=== PATIENT | male | born 1970 | race American Indian/Alaskan Native ===

== ENCOUNTER 2018-07-06 14:53 | Inpatient (IN) | payer MEDICAID ==
[2018-07-06 15:22] VITALS: BMI 25.1
[2018-07-06 16:22] LABS: BASO % 0.4 % (0.0-2.0); EOS # 0.1 K/uL (0.0-0.7); EOS % 1.6 % (0.0-4.0); HEMOGLOBIN 12.2 g/dL (12.0-18.0); LYMPH # 1.7 K/uL (1.0-4.3); LYMPH % 25.1 % (20.0-40.0); MEAN CELL VOLUME 72.3 fL (80.0-94.0); MEAN CORPUSCULAR HEMOGLOBIN 23.4 pg (27.0-31.0); MEAN CORPUSCULAR HGB CONC 32.4 g/dL (33.0-37.0); MEAN PLATELET VOLUME 8.3 fL (7.2-11.7); MONO # 0.4 K/uL (0.0-0.8); MONO % 5.1 % (0.0-10.0); NEUT # 4.7 K/uL (1.8-7.0); NEUT % 67.8 % (50.0-75.0); NRBC % 0.1 % (0.0-2.0); RBC 5.21 Mil/uL (4.40-5.90); RED CELL DISTRIBUTION WIDTH 15.8 % (11.5-14.5)
[2018-07-06 16:37] LABS: URINE BACTERIA RARE (<OCC); URINE BILIRUBIN NEGATIVE (NEGATIVE); URINE BLOOD NEGATIVE (NEGATIVE); URINE CLARITY Clear (Clear); URINE COLOR Yellow (YELLOW); URINE GLUCOSE (UA) NORMAL (Normal); URINE LEUKOCYTE ESTERASE NEG Leu/uL (Negative); URINE PROTEIN 1+ mg/dL (NEGATIVE)
[2018-07-06 16:41] LABS: ALB/GLOB RATIO 1.3 (1.0-2.1); ALBUMIN 4.5 g/dL (3.5-5.0); ALT/SGPT 17 U/L (21-72); AST/SGOT 24 U/L (17-59); BLOOD UREA NITROGEN 20 mg/dL (9-20); CALCIUM 9.2 mg/dl (8.6-10.4); GFR NON-AFRICAN AMERICAN > 60
[2018-07-06 16:48] LABS: BARBITURATES, UR NEGATIVE (NEGATIVE); BENZODIAZEPINES, UR NEGATIVE (NEGATIVE); PHENCYCLIDINE, UR NEGATIVE (NEGATIVE)
[2018-07-06 16:52] LABS: OPIATES, UR POSITIVE (NEGATIVE)
--- NOTE | 2018-07-06 17:06 | C.PDOC ---
History Of Present Illness 47 year old male presents to the ED requesting detox for heroin abuse. Patient denies SI/HI, hallucinations, CP, SOB, palpitations, rash, weakness, numbness, injury, fall, trauma. Time Seen by Provider: 07/06/18 15:34 Chief Complaint (Nursing): Substance Abuse History Per: Patient History/Exam Limitations: no limitations Onset/Duration Of Symptoms: Hrs Current Symptoms Are (Timing): Still Present Suicide/Self Injury Attempted (Context): None Modifying Factor(s): Other (Heroin) Associated Symptoms: denies: Depression, Suicidal Thoughts, Suicidal Plan Recent travel outside of the [place]: No Additional History Per: Patient Past Medical History Reviewed: Historical Data, Nursing Documentation, Vital Signs Vital Signs: Last Vital Signs Temp 98.6 F 07/06/18 15:22 Pulse 48 L 07/06/18 15:22 Resp 18 07/06/18 15:22 BP 165/94 H 07/06/18 15:22 Pulse Ox 100 07/06/18 15:22 - Medical History PMH: HTN Denies: Chronic Kidney Disease Surgical History: No Surg Hx Family History: States: Unknown Family Hx - Social History Hx Alcohol Use: No Hx Substance Use: Yes - Immunization History Hx Tetanus Toxoid Vaccination: No Hx Influenza Vaccination: No Hx Pneumococcal Vaccination: No Review Of Systems Constitutional: Negative for: Fever, Chills Eyes: Negative for: Vision Change Cardiovascular: Negative for: Chest Pain Respiratory: Negative for: Shortness of Breath Gastrointestinal: Negative for: Nausea, Vomiting, Abdominal Pain Skin: Negative for: Rash Psych: Negative for: Depression, Suicidal ideation Physical Exam - Physical Exam Appears: Non-toxic, No Acute Distress Skin: Normal Color, Warm, Dry Head: Atraumatic, Normacephalic Eye(s): bilateral: Normal Inspection Neck: Normal ROM, Supple Chest: Symmetrical Cardiovascular: Rhythm Regular Respiratory: Normal Breath Sounds, No Rales, No Rhonchi, No Wheezing Gastrointestinal/Abdominal: Soft, No Tenderness, No Guarding, No Rebound Extremity: Normal ROM, No Tenderness, No Swelling Neurological/Psych: Oriented x3, Normal Speech, Normal Cognition Gait: Steady ED Course And Treatment - Laboratory Results Result Diagrams: 07/06/18 16:18 07/06/18 16:18 Lab Interpretation: Abnormal (opiates + tox) O2 Sat by Pulse Oximetry: 100 (ON RA) Pulse Ox Interpretation: Normal Reevaluation Time: 17:24 Reassessment Condition: Unchanged - Physician Consult Information Outcome Of Conversation: d/w Crisis, ok to admit to Detox Medical Decision Making Medical Decision Making: Plan: * Labs * UA * Crisis eval Disposition Doctor Will See Patient In The: Hospital Counseled Patient/Family Regarding: Studies Performed, Diagnosis - Disposition Disposition: HOSPITALIZED Disposition Time: 17:25 Condition: GOOD Forms: [facility] (Armenian) - Clinical Impression Clinical Impression: Opiate abuse, continuous - Scribe Statement The provider has reviewed the documentation as recorded by the Scribe Rupert Valentin All medical record entries made by the Scribe were at my direction and per sonally dictated by me. I have reviewed the chart and agree that the record accurately reflects my personal performance of the history, physical exam, medical decision making, and the department course for this patient. I have also personally directed, reviewed, and agree with the discharge instructions and disposition.
--- NOTE | 2018-07-06 17:49 | PCM.BM ---
<Basilio Trujillo - Last Filed: 07/06/18 17:48> Treatment assets and liabiliti Patient Assests: cognitively intact Patient Liabilities: substance abuse - Milieu Protocol Maintain good personal hygiene: daily Encourage regular showers, daily Remind patient to perform daily oral care, daily Assist patient to perform ADL's Conduct patient checks and document Observation sheet: Q15 minutes Maintain personal safety: every shift Educate patient to report safety concerns to staff, every shift Monitor environment for contraband/sharps Medication safety: Monitor for expected outcome, potential side effects: every shift, Assess barriers to learning: every shift, Assess readiness for medication education: every shift <Maritza Madrid - Last Filed: 07/09/18 14:03> Family Contact Family involvement: Famliy/SO not involved - Goals for Treatment Patient goals for treatment: Complete detox and transition to an IOP with Suboxone maintenance. Discharge/Continuing Care - Education Needs Education Needs: Patient Medication, Patient Diagnosis/Disease Process, Patient Coping Skills, Patient Anger Management skills, Patient Placement options, Patient Community resources - Discharge Discharge Criteria: No longer exhibiting s/s of withdrawal, Reduction of target symptoms Discharge to:: Home, With Family - Treatment Team Participation Patient/Family/SO Statement: 07/09/18 14:04 "I'll go to an IOP and I wanna try Suboxone too..." Discussed with Family/SO: No Was Patient/Family/SO present at Treatment Team Meeting: Yes <Lakesha Kelley - Last Filed: 07/09/18 22:52> - Diagnosis (1) Opiate abuse, continuous Status: Acute Interventions: 07/09/18 22:52 * Assess 7x/week regarding severity of withdrawal * Educate regarding risks, benefits, side effects and alternatives of medications * Use Motivational Interviewing for abstinence * Use CBT for relapse prevention * Medication management for withdrawal symptoms * Encourage medication assisted treatment *
[2018-07-07] MEDS ORDERED: Aluminum Hydroxide/Magnesium Hydroxide Susp (30 mL) PO PRN (12:04)
[2018-07-07] MEDS ORDERED: Buprenorphine Hydrochloride 2 mg SL ONE ×3 (15:08→16:00)
--- NOTE | 2018-07-07 19:13 | PCM.PSYCH ---
Initial Psychiatric Evaluation - Initial Psychiatric Evaluation Type of Admission: Voluntary () Legal Status: Capacity Chief Complaint (in patient's own words): I need help from heroin use. History of Present Illness and Precipitating Events: Patient is a 47 years old, single, unemployed, male with no previous history of psychiatric illness was admitted due to withdrawing from heroin. Patient reported started using heroin at 20 years of age, increased gradually up to 15 bags of heroin daily, sniffing. Last use of heroin was yesterday, 3 bags. His longest period of abstinence was 3 years, 3 years ago when he was in penitentiary. Patient was in penitentiary for about 3 years for selling drugs, released years ago and relapse on heroin. He has history of one previous detox and no rehabs. He was smoking one and a half pack of cigarettes daily and is requesting for nicotine patch. Patient has history of 6 arrests in the past and was in penitentiary multiple times. His most recent incarceration was 6 years ago for selling drugs, was released from penitentiary 3 years ago. He is not on probation. Patient was born in [place] and has 11th grade of education. He is not working for last 3 months. 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 He lives with his girlfriend who also helps him. Patient was never and has 4 children 14, 21, 25 and 26 years of age from 2 different females. His 14 years of age was adopted. His height is 5 feet 11 inches and weight is 180 pounds. Current Medications: Active Medications Generic Name Dose Route Start Last Admin Trade Name Freq PRN Reason Stop Dose Admin Al Hydrox/Mg Hydrox/Simethicone 30 ml 07/07/18 12:04 Maalox 30 Ml PO TID PRN Indigestion / Heartburn Amlodipine Besylate 10 mg 07/07/18 12:30 07/07/18 12:32 Norvasc PO 10 mg DAILY RAMYA Administration Carvedilol 25 mg 07/07/18 18:00 07/07/18 17:07 Coreg PO 25 mg BID RAMYA Administration Dicyclomine HCl 20 mg 07/07/18 12:07 07/07/18 12:32 Bentyl PO 20 mg Q6 PRN Administration Abdominal Cramps Gabapentin 400 mg 07/07/18 14:00 07/07/18 17:07 Neurontin PO 400 mg TID RAMYA Administration Hydrochlorothiazide 25 mg 07/07/18 12:15 07/07/18 12:31 Hydrodiuril PO 25 mg DAILY RAMYA Administration Hydroxyzine HCl 25 mg 07/06/18 22:27 Atarax PO Q6 PRN Anxiety Loperamide HCl 2 mg 07/07/18 12:04 Imodium PO Q8 PRN Diarrhea Nicotine 1 patch 07/07/18 10:00 07/07/18 10:04 Nicoderm Cq TD Not Given DAILY RAMYA Ondansetron HCl 4 mg 07/07/18 12:04 Zofran Tab PO Q8 PRN Nausea/Vomiting Trazodone HCl 50 mg 07/06/18 18:20 Desyrel PO HS PRN Insomnia Past Psychiatric History - Past Psychiatric History Previous Treatment History: Inpatient Prior Professional Help: One previous detox. History of Abuse: None reported History of ETOH/Drug Use: See HPI History of Family Illness: None reported Pertinent Medical Hx (Current Medical&Sleep Prob, Allergies): Allergies Allergy/AdvReac Type Severity Reaction Status Date / Time No Known Allergies Allergy Verified 07/06/18 15:21 Clonidine 0.2 mg PO BID 02/04/15 Losartan [Cozaar] 100 mg PO DAILY 02/04/15 Metoprolol Tartrate [Lopressor] 100 mg PO BID 02/04/15 amLODIPine [Norvasc] 10 mg PO DAILY 02/04/15 Vit D 50,000 iu PO QWK 07/20/15 hydrALAZINE [hydralazine Hydrochloride] 50 mg PO TID 07/20/15 Amlodipine Besylate [Norvasc] 10 mg PO DAILY #30 tablet 11/17/15 Clonidine HCl [Catapres] 0.2 mg PO BID #60 tablet 11/17/15 Losartan [Cozaar] 100 mg PO DAILY #30 tab 11/17/15 Metoprolol Tartrate 100 mg PO BID #60 tablet 11/17/15 hydrALAZINE [Apresoline] 50 mg PO TID #90 tab 11/17/15 Hypertension Review of Systems - Psychiatric Psychiatric: As Per HPI, Anxiety Mental Status Examination - Personal Presentation Personal Presentation: Looks stated age - Affect Affect: Other (Appropriate) - Motor Activity Motor Activity: Calm - Reliability in Providing Information Reliability in Providing Information: Fair - Speech Speech: Organized - Mood Mood: Anxious - Formal Thought Process Formal Thought Process: No Impairment - Hallucinations/Delusions Hallucinations: Other (None reported) Delusions: Other - Obsessions/Compulsions Obsessions: None Compulsions: None - Cognitive Functions Orientation: Person, Place, Situation, Time Sensorium: Alert Attention/Concentration: Attentive Estimate of Intelligence: Average Judgement: Intact, as evidence by: Insight regarding need for hospitalization Memory: Recent intact, as evidence by: Ability to recall events of the day, Remote intact, as evidenced by: Ability to recall historical events - Risk Risk: Withdrawal, Diminished functioning - Strength & Assets Inventory Strength & Assets Inventory: Cooperative - Limitations Limitations: Other (Lives with his girlfriend) DSM 5 DX - DSM 5 DSM 5 Diagnosis: Opioid withdrawal. Opioid use disorder severe - Recommended/Plan of Treatment Treatment Recommendations and Plan of Treatment: Patient education. Supportive therapy. CBT for relapse prevention. MT for abstinence. We'll start buprenorphine for opiate withdrawal . Other when necessary medications. Patient wants to go to [facility] or [facility] for follow-up care after discharge from the hospital. Projected ELOS: 4-5 days - Smoking Cessation Smoking Cessation Initiated: Yes
[2018-07-08] MEDS: Buprenorphine Hydrochloride 2 mg SL SCH (09:53)
--- NOTE | 2018-07-08 10:37 | PCM.PYCHPN ---
Psychiatric Progress Note - Psychiatric Progress Note Patient seen today, length of contact: 17 min Patient Chief Complaint: "I'm getting better" Problems Identified/Issues Discussed: The pt is seen, chart reviewed, case discussed with staff. The pt is compliant with medications and reports no side-effects. Symptoms are improving but needs more time to stabilize. Pt attends groups and activities. Support given, psycho-education provided. After care discussed. He wants to go back to [facility] but not sure if they will give suboxone again. Medication Change: Yes (detox changes daily) Medical Record Reviewed: Yes Mental Status Examination - Cognitive Function Orientation: Person, Place, Situation, Time Memory: Intact Attention: WNL Concentration: Poor Association: WNL Fund of Knowledge: WNL - Mood Mood: Anxious - Affect Affect: Constricted - Speech Speech: Appropriate - Formal Thought Process Formal Thought Process: No Impairment - Suicidal Ideation Suicidal Ideation: No - Homicidal Ideation Homicidal Ideation: No Goal/Treatment Plan - Goal/Treatment Plan Need for Continued Stay: Discharge may exacerbated symptoms, Severe functional impairment Progress Toward Problem(s) and Goals/Treatment Plan: Continue medications Support and psychoeducation daily Attend groups and activities daily After care planning by counselors: Back to [facility] Estimated Date of D/C: 07/11/18
[2018-07-09] MEDS: Buprenorphine Hydrochloride 2 mg SL SCH (09:55)
--- NOTE | 2018-07-09 22:56 | PCM.PYCHPN ---
Psychiatric Progress Note - Psychiatric Progress Note Patient seen today, length of contact: 16 min Patient Chief Complaint: "I'm OK" Problems Identified/Issues Discussed: The pt is seen, chart reviewed, case discussed with staff. Support and psychoeducation given, CBT and MA used briefly No new symptoms reported, improving slowly and needs more time No SEs from medications, risks discussed. After care discussed Medication Change: Yes (detox changes daily) Medical Record Reviewed: Yes Mental Status Examination - Cognitive Function Orientation: Person, Place, Situation, Time Memory: Intact Attention: WNL Concentration: Poor Association: WNL Fund of Knowledge: WNL - Mood Mood: Anxious - Affect Affect: Constricted - Speech Speech: Appropriate - Formal Thought Process Formal Thought Process: No Impairment - Suicidal Ideation Suicidal Ideation: No - Homicidal Ideation Homicidal Ideation: No Goal/Treatment Plan - Goal/Treatment Plan Need for Continued Stay: Discharge may exacerbated symptoms, Severe functional impairment Progress Toward Problem(s) and Goals/Treatment Plan: Continue medications Support and psychoeducation daily Attend groups and activities daily After care planning by counselors: Back to [facility] Estimated Date of D/C: 07/11/18
[2018-07-10] MEDS: Buprenorphine Hydrochloride 2 mg SL SCH (09:23)
--- NOTE | 2018-07-11 08:57 | PCM.PYCHDC ---
Mental Status Examination - Mental Status Examination Orientation: Person Discharge Summary - Discharge Note Consultations:: List each consultation separately and include: 1. Reason for request. 2. Findings. 3. Follow-up Summary of Hospital Course include:: 1. Description of specific treatment plan utilized for patients during their course of treatmen. 2. Summarize the time- course for resolution of acute symptoms and/or regressed behaviors. 3. Describe issues identified and worked on during hospitalization. 4. Describe medication utilized. 5. Describe medical problems identified and treated. 6. Reassessment of suicide risk Summary of Hospital Course: Pt went to [facility]. - Diagnosis (1) Opiate abuse, continuous Current Visit: Yes Status: Acute - Final Diagnosis (DSM 5) Condition upon Discharge: GOOD Disposition: HOME/ ROUTINE Follow-up Treatment Plan: Continue medications Support and psychoeducation daily Attend groups and activities daily After care planning by counselors: Back to [facility] Prescriptions/Medication Reconciliation: amLODIPine [Norvasc] 10 mg PO DAILY #30 tab Carvedilol [Coreg] 25 mg PO BID #60 tab Gabapentin [Neurontin] 400 mg PO TID #90 cap hydroCHLOROthiazide [Hydrodiuril] 25 mg PO DAILY #30 tab traZODone [Desyrel] 50 mg PO HS PRN #30 tab PRN Reason: Insomnia
[2018-07-11] MEDS: Buprenorphine Hydrochloride 2 mg SL SCH (09:26)
[2018-07-11 11:22] VITALS: BP 143/85; PULSE 60; RESP 18; TEMP 98; O2SAT 18
== END 2018-07-11 11:20 | disposition home or self-care (01) | DRG 745 ==
LOC: C.ER 14:53 → C.7D 17:23
PROC: HZ2ZZZZ Detoxification Services for Substance Abuse Treatment (ICD-10-PCS; principal; 2018-07-06)
PROC: HZ80ZZZ Medication Management for Substance Abuse Treatment, Nicotine Replacement (ICD-10-PCS; 2018-07-06)
PROC: HZ46ZZZ Group Counseling for Substance Abuse Treatment, Psychoeducation (ICD-10-PCS; 2018-07-06)
PROC: HZ59ZZZ Individual Psychotherapy for Substance Abuse Treatment, Supportive (ICD-10-PCS; 2018-07-06)
DX: F11.23 Opioid dependence with withdrawal (principal); F17.210 Nicotine dependence, cigarettes, uncomplicated; I10 Essential (primary) hypertension; Z56.0 Unemployment, unspecified